=== PATIENT | female | born 1985 | race Caucasian/White ===

== ENCOUNTER 2023-11-23 09:45 | Outpatient (CLI) | payer BC, OTHER, SELFPAY ==
--- NOTE | ~2023-11-23 | MM_ITS ---
EXAMINATION: MM screening emilie BI w sabi HISTORY: Screening TECHNIQUE: Craniocaudal and mediolateral oblique 3-D tomosynthesis images were obtained and synthetic 2-D images were generated. CAD analysis was submitted and interpreted. COMPARISON: No prior mammogram is available for comparison at this institution. BREAST PARENCHYMAL COMPOSITION: Dense: The breasts are extremely dense, which lowers the sensitivity of mammography. FINDINGS: There is no evidence of suspicious mass, calcification, or architectural distortion to sugg est malignancy in either breast. There has been no suspicious interval change. IMPRESSION: 1. No mammographic evidence of malignancy. 2. Recommend routine screening mammography in one year. BI-RADS Category 1: Negative Reviewed, dictated and finalized at location B.
== END 2023-11-23 09:46 | disposition home or self-care (01) ==
LOC: ANHIMG 09:49
PROVIDERS: Visit Provider Surgery Plastic and Reconstructive Surgery
DX: Z12.31 Encounter for screening mammogram for malignant neoplasm of breast (principal)
CPT/HCPCS: 77063; 77067

== ENCOUNTER 2024-02-05 10:52 | Outpatient (CLI) | payer BC, OTHER, SELFPAY ==
--- NOTE | 2024-02-05 11:08 | ECG_ITS ---
Test Date: 2024-02-05 11:19:24 Measurements Intervals [place] Rate: 58 P: 29 WI: 143 QRS: 62 QRSD: 97 T: 20 QT: 425 QTc: 418 Interpretive Statements SINUS BRADYCARDIA INCOMPLETE RIGHT BUNDLE BRANCH BLOCK NONSPECIFIC T-WAVE ABNORMALITY No previous ECG available for comparison Electronically Signed On 02-05-2024 15:19:24 CDT by Marino Peres M.D.
[2024-02-05 11:28] LABS: Hematocrit 40.4 % (37.0-47.0); Hemoglobin 13.4 g/dL (12.0-15.0)
== END 2024-02-05 10:53 | disposition home or self-care (01) ==
PROVIDERS: Anesthesiology; Visit Provider Surgery Plastic and Reconstructive Surgery
DX: Z41.1 Encounter for cosmetic surgery (principal)
CPT/HCPCS: 36415; 85014; 85018; 93005

== ENCOUNTER 2024-02-12 01:27 | Day surgery (SDC) | payer OTHER, SELFPAY ==
--- NOTE | 2024-02-04 15:15 | SUR.PREOP ---
Report to the Outpatient Waiting Room, entrance under the green pavilion located off [facility], at time ____07___ on date ____02/12/24___. Planned Procedure Time: ____899____. Time changes happen often and if your time is changed the preop area will call you the afternoon before. - You and your visitor will be asked to self-screen and do not enter if you have any COVID symptoms. - A mask is optional within the hospital at this time. Patients may have clear liquids (water, carbonated beverages, clear teas, apple juice) until 3 hours prior to surgery with a maximum of 20 ounces. - NO CLEAR LIQUIDS AFTER 0600 - No food from midnight until time of surgery - Infants may have breast milk until 4 hours before surgery, infant formula 6 hours prior to surgery. - Children will be allowed to drink immediately following surgery. If applicable, please bring a bottle or sippy cup to assist with drinking. Juice, water, soda, and popsicles are readily available. For infants on formula, please bring formula the day of surgery. Pacifiers are allowed. Take the following medications with a SIP of water the morning of surgery: SERTRALINE DO NOT STOP ANY OF YOUR OTHER PRESCRIPTION MEDICATIONS PRIOR TO SURGERY ?EXCEPT THE FOLLOWING Medications to discontinue per physician N/A Date to take last dose Please no make-up, nail fijian, hairspray, perfume, deodorant, or body powder the day of surgery. No jewelry (including any body piercings) or valuables the day of surgery, leave them at home. Please take a shower or bath the night before, or the morning of, surgery with an antibacterial soap. Wear comfortable, loose fitting clothing. Children are encouraged to wear pajamas. - Jewelry must be removed prior to entering the operating room. Rings and piercings that are not removed may be cut off. - The hospital will not accept responsibility for valuables. - Please leave all valuables, including medications, at home the day of surgery. If you are going home after surgery, a licensed tow bar driver must drive you home. - NO public transportation without another adult if you receive anesthesia. - We recommend that an adult stay with you for 24 hours following discharge. - We also recommend that you do not drive, make important decision, drink alcoholic beverages, or take any drugs that were not prescribed by your health care provider for at least 24 hours after your discharge time. For Pediatric surgeries, we recommend two adults accompany the child home. Follow any additional instructions given to you from your surgeon. If you or anyone in your household have experienced Covid symptoms in the past week, please notify your surgeon or the nurse liaison at the phone number below for possible testing. Telephone instructions given to TOBY SCHAEFER and asked if any additional questions and then verbalized understanding. Patient advised to call surgeon office or pre surgery nurse liaison [phone] if any additional questions.
[2024-02-04 15:25] VITALS: BMI 27.2
[2024-02-12] VITALS (7 sets, daily range): BP systolic 104–132; BP diastolic 63–88; PULSE 66–104; RESP 14–18; TEMP 36.3–36.6; O2SAT 98–100
--- NOTE | 2024-02-12 07:11 | W.PM.PROC2 ---
Procedure Note - Detailed Date of Procedure 02/12/24 Pre-op Diagnosis skin laxity, micromastia Post-op Diagnosis Same Procedure Performed 1. Progressive tension abdominoplasty with suction lipectomy 2. Fat grafting bilateral breast Surgeon Mark Cardenas MD Anesthesia General Findings Lipoaspirate: 2,550 cc Fat grafting breast: Right - 350 cc Left - 350 cc Description of Procedure They are here today for the above procedures. Previously and again today the risks, benefits, alternatives were discussed in extensive detail. I wanted them to be very realistic about the risks involved as well as expectations. We discussed aftercare and what to monitor for. I was very upfront about the risks of wound breakdown leading to loss of skin, open wounds, and need for additional procedures with permanent abdominal deformity. We discussed DVT/PE risks and management. Made sure answered all of their questions to their satisfaction today and consent was obtained. They were marked in the preoperative holding area with their verification. The patient was taken to the operating room. Anesthesia was provided by anesthesiology. A Johnson catheter was started. Placed prone on the operating room table with care taken to protect from injury. Prepped and draped in a standard sterile fashion. A surgical time-out was taken. Stab incisions were made and tumescent solution was infiltrated. Once adequate time was allowed for hemostasis a 3mm multihole cannula was utilized for harvest of adipose tissue to a gravity separation device. Also utilized a 5mm basket to complete suction lipectomy based on S.A.F.E. technique in multiple planes and passes. Suction lipectomy continued to result based on pre-operative planning, intra-operative observation, and rolling pinch test which were in full agreement. Patient was then placed supine with care taken to protect from injury. I placed the patient in a flexed position to verify the upper and lower markings would reach. I then placed supine. A thorough abdominal examination was completed. Stab incisions were made and tumescent solution infiltrated. Stab incisions were made and tumescent solution was infiltrated. Once adequate time was allowed for hemostasis a 3mm multihole cannula was utilized for harvest of adipose tissue to a gravity separation device. Also utilized a 5mm basket to complete suction lipectomy based on S.A.F.E. technique in multiple planes and passes. Suction lipectomy continued to result based on pre-operative planning, intra-operative observation, and rolling pinch test which were in full agreement. A 10 blade was used to make the upper incision. I continued dissection down to the level of fascia. Elevated just what was necessary for repair of the diastasis. I then again flexed the bed to verify the upper skin flap would reach the lower markings without tension. Once verified I placed her supine once again and a 10 blade used to make the lower incision. I elevated up to level the umbilicus and left the umbilicus intact on a well-vascularized stalk. The intervening tissue was removed. A 2 mm blunt cannula with 0.5% bupivacaine was injected deep to the fascia bilaterally. I plicated the diastasis recti using 0 PDO Stratafix barbed suture. This was in 2 separate layers using 2 separate sutures as well. I also repaired lateral to the rectus using two layers of 0 PDS. After the patient was flexed (below) plicated the fascia with 0 PDO Stratafix in two separate layers. The patient was flexed and starting from superior to inferior began plication using 2-0 Vicryl to obliterate all space in a standard progressive tension fashion. At the umbilicus I marked out the location of the skin and inset this with 3-0 Monocryl and 4-0 Vicryl. I continued the remainder of the plication using 2-0 Vicryl until I reached my lower planned scar line. I trimmed any excess skin of the upper flap making sure t
[2024-02-12] MEDS: LACTATED RINGERS 1,000 ML 30 ML IV CONT ×2 (07:20→13:30)
[2024-02-12 07:29] LABS: BEDSIDEPREGUCG Negative
[2024-02-12 07:43] LABS: Urine Cotinine NEGATIVE
--- NOTE | 2024-02-12 08:47 | WPDANESEPPF ---
Anes - Initial Pre Proc Eval Procedure: Operation Date: 02/12/24 09:00 Proposed Procedures p Abdominoplasty with Liposuction, - Mark Cardenas MD s Fat Grafting to Bilateral Breasts - Mark Cardenas MD Date/Time: 02/12/24 08:47 Surgeon: Mark Cardenas MD Pre Op Diagnosis: skin laxity, micromastia Patient Data Age: 38 Gender: F Height: 1.63 m Weight: 68.25 kg Last Vital Signs Temp 97.8 F 02/12/24 07:26 Pulse 66 02/12/24 07:26 Resp 16 02/12/24 07:26 BP 104/71 02/12/24 07:26 Pulse Ox 99 02/12/24 07:26 O2 Del Method Room Air 02/12/24 07:26 Allergies Allergy/AdvReac Type Severity Reaction Status Date / Time No Known Allergies Allergy Mild Verified 02/12/24 07:12 Home Medications Medication Instructions Recorded Confirmed Type etonogestrel 68 mg subdermal 1 implant subdermal ONCE 02/13/22 02/04/24 History implant (Nexplanon) sertraline 100 mg tablet 100 mg PO DAILY #90 tabs 04/24/23 02/04/24 Rx isotretinoin 40 mg capsule 40 mg PO DAILY 12/05/23 02/04/24 History (Amnesteem) Laboratory Tests 02/12/24 02/12/24 07:06 07:27 POC Urine HCG, Qual Negative POC Ur Preg QC Yes Cotinine Negative Patient hx anesthesia problems: none Family hx anesthesia problems: none Results Review: All pre-operative results and documents have been reviewed as part of the pre-operative evaluation. [facility] Past Medical History Medical History Abnormal Pap smear of cervix BRIANA I 2008 - LEEP Acne Anxiety Depression Encounter for removal and reinsertion of Nexplanon 02/13/2022 Headache History of broken nose 2004 Nexplanon insertion 05/04/15 Nexplanon insertion 07/23/18 Nexplanon removal/reinsertion Nexplanon removal 07/23/18 Nexplanon removal/reinsertion Surgical History Surgical History H/O LEEP 2009 BRIANA I History of 06/18/11 primary c/s--elective 03/01/15 rpt c/s History of tonsillectomy 2005 Hx of LASIK 03/23/20 Family History Family History Mother Hypertension Grandparent Diabetes mellitus paternal grandfather Father No problems noted. Sibling No problems noted. 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 Gender identity (if verbalized by the patient): Female Sexual Orientation (if Verbalized by the Patient): Straight or Heterosexual Spiritual care concerns: No Anes - Eval Final PreProcedure Day of Procedure 02/12/24 08:47 Patient weight: normal Heart: regular rate and rhythm Lungs: clear to auscultation Airway: Mallampati scale class II Neurological: alert and oriented Last oral intake: >/= 8 hours ASA classification: II Emergent: no Anesthetic plan: proceed Anesthesia type and monitoring: general ETT and standard monitoring Results Review: All pre-operative results and documents have been reviewed as part of the pre-operative evaluation. Informed Consent: The patient's anesthetic plan and its attendant risks and benefits were discussed with the patient/family/POA. Questions were solicited and answers provided to the satisfaction of the patient/family/POA.
[2024-02-12] MEDS: ceFAZolin 2 GM/D5W 50 ML 2 GM/50 ML BAG IVPB (08:49)
[2024-02-12] MEDS: TRANEXAMIC ACID 1,000MG/ISO100 1,000 MG/100 ML BAG 200 MG IVPB (08:49)
--- NOTE | 2024-02-12 10:09 | WPDHPUPDATE1 ---
History and Physical Update Update Date/Time: 02/12/24 08:46 History and Physical has been reviewed, including an updated exam of the patient. There are NO changes in the patient's condition. Risks, benefits, and alternatives have been discussed and questions answered. Patient agrees to proceed with procedure.
[2024-02-12] MEDS: LACTATED RINGERS IRRIG 1,000 ML, LIDOCAINE HCL 1% LOCAL INJ 50 ML, EPINEPHrine HCL INJ ... INFILTRATE (11:22)
[2024-02-12] MEDS: BUPIVACAINE/EPINEPHRINE 0.5% 10 ML VIAL 60 ML INFILTRATE (11:29)
[2024-02-12] MEDS: oxyCODONE HCL (*CRX) 5 MG TAB IR PO (14:44)
== END 2024-02-12 15:30 | disposition home or self-care (01) ==
PROVIDERS: Visit Provider Surgery Plastic and Reconstructive Surgery
PROC: (CPT 15830; principal; 2024-02-12 09:00)
PROC: (CPT 15769; 2024-02-12 09:00)
DX: Z41.1 Encounter for cosmetic surgery (principal); N64.82 Hypoplasia of breast; L57.4 Cutis laxa senilis; F41.9 Anxiety disorder, unspecified; F32.A Depression, unspecified; Z79.899 Other long term (current) drug therapy
CPT/HCPCS: 15830; 15847; 15771; 15772 ×13; 80307; A9270; J0171; J0330; J0690; J1100; J1170; J2250; J2405; J2704; J3010; J7120

== ENCOUNTER 2025-03-27 12:21 | Outpatient (CLI) | payer BC, OTHER, SELFPAY ==
--- NOTE | ~2025-03-27 | MM_ITS ---
EXAMINATION: MM screening emilie BI w sabi HISTORY: Screening TECHNIQUE: Craniocaudal and mediolateral oblique 3-D tomosynthesis images were obtained and synthetic 2-D images were generated. CAD analysis was submitted and interpreted. COMPARISON: No prior mammogram is available for comparison at this institution. BREAST PARENCHYMAL COMPOSITION: The breasts are extremely dense, which lowers the sensitivity of mammography. FINDINGS: There is no evidence of suspicious mass, calcification, or architectural distortion to suggest malignancy. Asymmetry in the right retroareolar region. Asymmetry at the level of the posterior nipple line, posterior depth, seen in the left MLO projection. IMPRESSION: 1. Asymmetry in the right retroareolar region. The study is incomplete. A diagnostic mammogram and a diagnostic ultrasound are recommended. 2. Asymmetry at the level of the posterior nipple line, posterior depth, seen in the left MLO projection. The study is incomplete. A diagnostic mammogram and a diagnostic ultrasound are recommended. BI-RADS 0: Incomplete-Need additional imaging evaluation. Reviewed, dictated and finalized at location Q. IMPRESSION: 1. Asymmetry in the right retroareolar region. The study is incomplete. A diagn ostic mammogram and a diagnostic ultrasound are recommended. 2. Asymmetry at the level of the posterior nipple line, posterior depth, seen i n the left MLO projection. The study is incomplete. A diagnostic mammogram and a diagnostic ultrasound are recommended. BI-RADS 0: Incomplete-Need additional imaging evaluation.
== END 2025-03-27 12:22 | disposition home or self-care (01) ==
PROVIDERS: PCP Surgery Plastic and Reconstructive Surgery; Visit Provider Surgery Plastic and Reconstructive Surgery
DX: Z12.31 Encounter for screening mammogram for malignant neoplasm of breast (principal); R92.8 Other abnormal and inconclusive findings on diagnostic imaging of breast
CPT/HCPCS: 77063; 77067

== ENCOUNTER 2025-04-21 09:34 | Outpatient (CLI) | payer BC, OTHER, SELFPAY ==
--- NOTE | ~2025-04-21 | MMUS_ITS ---
EXAMINATION: MM diagnostic emilie BI w sabi, US breast LT limited INDICATION: 40-year old female; BI-RADS 0, callback to evaluate Both breasts asymmetries COMPARISON: 03/27/2025 TECHNIQUE: Digital breast tomosynthesis True lateral and spot compression MLO views of BILATERAL breasts were obtained with computer-aided detection to assist in interpretation of the study. FINDINGS: The breasts are extremely dense, which lowers the sensitivity of mammography. The asymmetry of concern in the right retroareolar region effaces on spot compression views compatible with superimposition of fibroglandular tissue. The asymmetry of concern in the retroareolar left breast persists as a circumscribed mass. Ultrasound was performed for further evaluation. LEFT BREAST ULTRASOUND FINDINGS: Targeted evaluation of the area of concern was completed. There is a 0.9 x 0.8 x 0.5 cm cluster of cysts at 10:00 location 5 cm from the nipple that correlate to the area of mammographic finding. IMPRESSION: Probable Benign LEFT breast mass. Short-term follow-up recommended. RECOMMENDATION: 6 month follow-up diagnostic LEFT mammogram and LEFT breast ultrasound. BI-RADS 3, PROBABLY BENIGN Reviewed, dictated and finalized at location B. [employer]OR IMPRESSION: Probable Benign LEFT breast mass. Short-term follow-up recommended. RECOMMENDATION: 6 month follow-up diagnostic LEFT mammogram and LEFT breast ultrasound. BI-RADS 3, PROBABLY BENIGN
--- OUTSIDE RECORDS SUMMARY | 2025-04-21 10:45 | XMS_ITS | Encounter Summary ---
Author Organization [facility] Address [address] [place] [address] Care Team Providers Care Batch Tester Name Role Phone Alonzo Mtz MD Primary Care Provider [phone] Reason for Visit * Reason Onset Date Comments Nurse Only 07/26/2022 Encounter Details Date Type Department Care Team (Late st Contact Info) Description 07/26/2022 Telephone [facility] [address] [place] [address], [place] [id number] Shahla Sy MD [address] [place] [address] [address] [place] [address] Nurse Only Social History Tobacco Use Types Packs/Day Years Used Date Smoking Tobacco: Never Smokeless Tobacco: Never Alcohol Use Standard Drinks/Week Comments No 0 (1 standard drink = 0.6 oz pur e alcohol) Comments No Sex and Gender Information Value Date Recorded Sex Assigned at Not on file Legal Sex Female 10:23 AM CDT Gender Identity Not on file Sexual Orientation Not on file documented as of this encounter Miscellaneous Notes * Telephone Encounter - Kaykay Cano - 07/26/2022 9:23 AM CST Pt states the script ketozonazole shampoo and pimecrolimus that was called in for her is not working she would like to know what other options she has OR ADVISOR documented in this encounter Plan of Treatment Not on file documented as of this encounter Visit Diagnoses Not on filedocumented in this encounter Care Teams Batch Tester Relationship Specialty Start Date End Date Alonzo Mtz MD [address] [address] PCP - General 10/16/17 documented as of this encounter
--- OUTSIDE RECORDS SUMMARY | 2025-04-21 10:45 | XMS_ITS | Patient Health Record ---
Author Organization [facility] Address [address] [place], [place] [id number] Care Team Providers Care Membership Sales Representative Name Role Phone CHIRAG CLEARY Unavailable [phone] Alonzo Mtz Unavailable Unavailable Reason For Referral No Information Social History Social History Additional Details Category Social Info Options Details Migrated Social History Migrated Social History History of tobacco use : , Smoking Status : Never smoked Plan Of Treatment No Information Insurance Providers Payer Name Payer Address Payer Phone Subscriber Number Group Number Insured Name Patient Relationship to Insured Coverage Start Date Coverage End Date [facility] [address] [place], [place] [id number] TOBY SCHAEFER Self - patient is the insured Local [facility] [id number] [place] [address] [id number] CHRISTIAN SCHAEFER Spouse - patient is the spouse of the insured
--- OUTSIDE RECORDS SUMMARY | 2025-04-21 10:45 | XMS_ITS | Clinical Summary ---
Author Organization [facility] Address [address] [place] [address] Care Team Providers Care Director Cardiovascular Name Role Phone None, Provider MD Primary Care Provider Unavaila ble Allergies No known active allergies Medications MULTIPLE VITAMINS-MINERA LS OR Take 1 tablet by mouth daily. Active sertraline (ZOLOFT) 100 MG tablet Take 1 tablet (100 mg total) by mouth daily. 3 Active etonogestrel (NEXPLANON) 68 MG SC implant 1 each (68 mg total) by Implant route once. Active clobetasol (TEMOVATE) 0.05 % external solution Apply 1 Application. topically 2 (two) times daily. 3 Active ketoconazole (NIZORAL) 2 % shampoo Apply 1 Application. topically every other day. 3 Active probiotic (FLORAJEN3) Cap capsule Take 2 capsules by mouth daily with breakfast. Tumeric + 62 billion CFU Active NON FORMULARY Take 1 tablet by mouth 2 (two) times a day. JSHEALTH DETOX AND DEBLOAT Active Family History Medical History Relation Comments No Known Problems Brother No Known Problems Father No Known Problems Mother No Known Problems Sister Relation Status Comments Brother Father Mother Sister Social History Tobacco Use Types Packs/Day Years Used Date Smoking Tobacco: Never Smokeless Tobacco: Never Tobacco Cessation:Counseling Given: Not Answered Alcohol Use Standard Drinks/Week Comments Not Currently 1.7 (1 standard drink = 0.6 oz p ure alcohol) Comments Unknown Sex and Gender Information Value Date Recorded Sex Assigned at Not on file Legal Sex Female 8:43 AM CDT Gender Identity Not on file Sexual Orientation Not on file Last Filed Vital Signs Vital Sign Reading Time Taken Comments Blood Pressure 113/72 04/25/2023 1:15 PM [employer] Pulse 65 04/25/2023 1:15 PM [employer] Temperature 37.3 C (99.1 F) 04/25/2023 1:15 PM [employer] Respiratory Rate 20 04/25/2023 1:15 PM [employer] Oxygen Saturation 99% 04/25/2023 1:15 PM [employer] Inhaled Oxygen Concentration - - Weight 71.5 kg (157 lb 11.2 oz) 04/25/2023 1:15 PM [employer] Height 162.6 cm (5' 4) 04/25/2023 1:15 PM [employer] Body Mass Index 27.07 04/25/2023 1:15 PM [employer] Plan of Treatment Health Maintenance Due Date Last Done Comments Cervical Cancer Screening Pa p Smear (Age 30 to 64) Every 3 Years 1985 Annual Physical 1988 Hepatitis C 2003 DTaP, Tdap and Td Vaccines ( 1 - Tdap) 2004 Hepatitis B Vaccines (1 of 3 - 19+ 3-dose series) 2004 HPV Vaccines (1 - 3-dose SCD M series) 2012 Cervical Cancer Screening Pa p with HPV Testing (Age 30 to 64) Every 5 Years 2015 Cervical Cancer Screening with HPV 2015 PHQ-2 (Physician [place]) 06/18/2024 COVID-19 Vaccine (1 - 2024-2 6 season) 2025 Influenza Adult (#1) 2025 Mammogram Screening 2025 Hepatitis A Vaccines Aged Out No long er eligible based on patient's age to complete this topic Meningococcal B Vaccine Aged Out No l onger eligible based on patient's age to complete this topic Meningococcal Vaccine Aged Out No nedra lucien eligible based on patient's age to complete this topic Pneumococcal Vaccine: Pediat rics (0 to 5 Years) and At-Risk Patients (6 to 49 Years) Aged Out No longer eligible b ased on patient's age to complete this topic RSV Immunizations Under 20 Months Aged Out No longer eligible based on patient's age to complete this topic Insurance [employer] [facility] Care Teams Director Cardiovascular Relationship Specialty Start Date End Date None, Provider, PCP - General UNKNOWN PHYSICIAN SPECIALTY 04/09/23
== END 2025-04-21 09:35 | disposition home or self-care (01) ==
LOC: CHSIMG 09:38
PROVIDERS: PCP Surgery Plastic and Reconstructive Surgery; Visit Provider Surgery Plastic and Reconstructive Surgery
DX: R92.8 Other abnormal and inconclusive findings on diagnostic imaging of breast (principal)
CPT/HCPCS: 76642; 77062; 77066; G0279

== ENCOUNTER 2025-05-12 00:06 | Day surgery (SDC) | payer OTHER, SELFPAY ==
[2025-05-01 11:12] VITALS: BMI 21.1
--- NOTE | 2025-05-01 11:18 | PC.NURSE ---
[facility] has started construction of its new state of the art ER which will open Spring 2026. With this, we anticipate parking may be a challenge for some our surgical patients and families. Parking spaces are limited but are available for all Surgical, obstetrics, and ER patients sharing this lot. If you arrive and find you are having a hard time finding a parking space, please note that we understand the challenges, please drive around the hospital and park near Hospital Entrance 1. When you enter this entrance, you can ask a volunteer to direct or take you back to the surgical waiting area to check in. We appreciate everyone?s understanding of these expected challenges while we build for your future. Report to the Outpatient Waiting Room, entrance under the green pavilion located off [address], at time _1030_ on date _[phone]_. Planned Procedure Time: _1230_.? Time changes happen often and if your time is changed the preop area will call you the afternoon before. - You and your visitor will be asked to self-screen and do not enter if you have any COVID symptoms. Please call surgeon if you need to reschedule. - A mask is optional within the hospital at this time. Patients may have clear liquids (water, carbonated beverages, clear teas, apple juice) until 3 hours prior to surgery with a maximum of 20 ounces. - No food from midnight until time of surgery and no smoking, or chewing tobacco (or any form of nicotine). No chewing gum, candy or mints. Take only the following medications with a SIP of water on the morning of surgery: ___Sertraline____ DO NOT STOP ANY OF YOUR OTHER PRESCRIPTION MEDICATIONS PRIOR TO SURGERY EXCEPT THE FOLLOWING Hold all vitamins and supplements for 3 days per anesthesiologist. Medications to discontinue per physician Date to take last dose Please no make-up, nail sami, hairspray, perfume, deodorant, or body powder the day of surgery.? No jewelry (including any body piercings) or valuables the day of surgery, leave them at home.? Please take a shower or bath the night before, or the morning of, surgery with an antibacterial soap.? Wear comfortable, loose fitting clothing.? - Jewelry must be removed prior to entering the operating room.? Rings and piercings that are not removed may be cut off. - The hospital will not accept responsibility for valuables.? - Please leave all valuables, including medications, at home the day of surgery. If you are going home after surgery, a licensed medical driver must drive you home.? - NO public transportation without another adult if you receive anesthesia. - We recommend that an adult stay with you for 24 hours following discharge. - We also recommend that you do not drive, make important decision, drink alcoholic beverages, or take any drugs that were not prescribed by your health care provider for at least 24 hours after your discharge time. Follow any additional instructions given to you from your surgeon. Telephone instructions given to _Paige__and asked if any additional questions and then verbalized understanding. Patient advised to call surgeon office or pre surgery nurse liaison [phone] if any additional questions.
[2025-05-12] VITALS (7 sets, daily range): BP systolic 102–131; BP diastolic 63–79; PULSE 61–94; RESP 12–19; TEMP 36.3–37; O2SAT 98–100; BMI 21.9
[2025-05-12] MEDS: LACTATED RINGERS 1,000 ML 30 ML IV CONT ×2 (10:50→13:52)
[2025-05-12] MEDS: TRANEXAMIC ACID 1,000MG/ISO100 1,000 MG/100 ML BAG 200 MG IVPB (11:57)
[2025-05-12 12:11] LABS: BEDSIDEPREGUCG Negative (Negative)
--- NOTE | 2025-05-12 12:19 | WPDHPUPDATE1 ---
History and Physical Update Update Date/Time: 05/12/25 12:19 History and Physical has been reviewed, including an updated exam of the patient. There are NO changes in the patient's condition. Risks, benefits, and alternatives have been discussed and questions answered. Patient agrees to proceed with procedure.
--- NOTE | 2025-05-12 12:23 | W.PM.PROC2 ---
Procedure Note - Detailed Date of Procedure 05/12/25 Pre-op Diagnosis micromastia Post-op Diagnosis Same Procedure Performed Bilateral augmentation mammaplasty Surgeon Mark Cardenas MD Anesthesia General Findings Bilateral Pato Cottrell SoftTouch 405cc Dual plane 1 Right: REF# [id number] SN [id number] Left: REF# [id number] SN [id number] Description of Procedure She is here today for bilateral breast augmentation. Previously and again today the risks, benefits, alternatives were discussed in extensive detail. I wanted her to be very realistic about the risks involved as well as expectations. We discussed aftercare and what to monitor for. Made sure answered all of her questions to her satisfaction today and consent was obtained. Marked in the preoperative holding area with their verification. The patient was taken to the operating room placed supine on the operating table. Anesthesia was provided by anesthesiology. A surgical time-out was taken. We cleansed the skin and 1% lidocaine and 0.25% Marcaine with epinephrine was used anesthetize as a field block. She was prepped and draped in a standard sterile fashion. Tegaderm nipple Padilla were placed. A 15 blade used to make an incision along the inframammary fold. Dissection was continued at 45 degree angle until the chest wall as identified. I incised the pectoralis major along its inferior border and completely released the inferior border leaving the medial border intact. I created a subpectoral pocket in the appropriate dimensions based on our preoperative planning for the implant. I then copiously irrigated with saline solution and verified a strict hemostasis. Next the use a triple antibiotic and Betadine containing solution to irrigate the pocket. I washed my gloves with the triple antibiotic and Betadine solution. We washed the implant immediately upon opening it with this solution and only opened it when we needed it. I used implant funnel and no-touch technique. The implant was introduced into the pocket using the funnel. Having verified positioning of the implant this was closed using 2-0 PDS followed by 3-0 Monocryl in a running subcuticular 4-0 Monocryl followed by tissue glue. Fluffs and surgical bra were placed. Patient was awoke and taken to PACU without difficulty. All instrument sponge counts were correct at the end of the case. Estimated Blood Loss 25 Drains No Packing No Pathology None sent Complications No immediate complications Condition Stable Disposition PACU
--- NOTE | 2025-05-12 12:42 | WPDANESEPPF ---
Anes - Initial Pre Proc Eval Procedure: Operation Date: 05/12/25 12:30 Proposed Procedures p Bilateral Breast Augmentation - Mark Cardenas MD Date/Time: 05/12/25 12:42 Surgeon: Mark Cardenas MD Pre Op Diagnosis: micromastia Patient Data Age: 40 Gender: F Height: 1.63 m Weight: 58 kg Last Vital Signs Temp 37.0 C 05/12/25 11:00 Pulse 68 05/12/25 11:00 Resp 18 05/12/25 11:00 BP 102/63 05/12/25 11:00 Pulse Ox 100 05/12/25 11:00 O2 Del Method Room Air 05/12/25 11:00 Allergies Allergy/AdvReac Type Severity Reaction Status Date / Time No Known Allergies Allergy Mild Verified 05/12/25 11:50 Home Medications ?Medication ?Instructions ?Recorded ?Confirmed ?Type etonogestrel 68 mg subdermal 1 implant subdermal ONCE 02/13/22 05/01/25 History implant (Nexplanon) sertraline 100 mg tablet 100 mg PO DAILY #90 tabs 01/02/25 05/01/25 Rx multivitamin (Daily Multi-Vitamin 1 tablet PO DAILY 05/01/25 05/12/25 History tablet) Laboratory Tests 05/12/25 11:00 POC Urine HCG, Qual Negative (Negative) Patient hx anesthesia problems: none Family hx anesthesia problems: none Results Review: All pre-operative results and documents have been reviewed as part of the pre-operative evaluation. [facility] Past Medical History Medical History Encounter for removal and reinsertion of Nexplanon 02/13/2022 Nexplanon removal 07/23/18 Nexplanon removal/reinsertion Nexplanon insertion 05/04/15 Nexplanon insertion 07/23/18 Nexplanon removal/reinsertion History of broken nose 2004 Headache Acne Depression Anxiety Abnormal Pap smear of cervix BRIANA I 2008 - LEEP Surgical History Surgical History H/O abdominoplasty Hx of LASIK 03/23/20 History of 06/18/11 primary c/s--elective 03/01/15 rpt c/s H/O LEEP 2009 BRIANA I History of tonsillectomy 2006 Family History Family History Mother Hypertension Grandparent Diabetes mellitus paternal grandfather Father No problems noted. Sibling No problems noted. 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 Gender identity (if verbalized by the patient): Female Sexual Orientation (if Verbalized by the Patient): Straight or Heterosexual Spiritual care concerns: No Anes - Eval Final PreProcedure Day of Procedure 05/12/25 12:42 Patient weight: normal Heart: regular rate and rhythm Lungs: clear to auscultation Airway: Mallampati scale class 1 Neurological: alert and oriented Last oral intake: >/= 8 hours ASA classification: II Emergent: no Anesthetic plan: proceed Anesthesia type and monitoring: general LMA and standard monitoring Results Review: All pre-operative results and documents have been reviewed as part of the pre-operative evaluation. Informed Consent: The patient's anesthetic plan and its attendant risks and benefits were discussed with the patient/family/POA. Questions were solicited and answers provided to the satisfaction of the patient/family/POA.
[2025-05-12] MEDS: NACL 0.9% IRRIG POUR BOTTLE 900 ML, GENTAMICIN SULFATE INJ 160 MG, ceFAZolin 2 GM, POVI... IRRIGATION (12:47)
[2025-05-12] MEDS: ceFAZolin 2 GM in SODIUM CHLORIDE 0.9% IV 50 ML 100 ML IVPB (12:47)
[2025-05-12] MEDS: LIDO 1%/EPINEPHRINE 1:100,000 50 ML VIAL 30 ML INFILTRATE (12:47)
[2025-05-12] MEDS: HYDROmorphone HCL INJ (*CRX) 1 MG/ML SYR 0.25 MG IV PUSH ×3 (14:09→14:26)
[2025-05-12] MEDS: oxyCODONE HCL (*CRX) 5 MG TAB IR PO (14:46)
== END 2025-05-12 15:19 | disposition home or self-care (01) ==
PROVIDERS: Visit Provider Surgery Plastic and Reconstructive Surgery
PROC: (CPT 19325; principal; 2025-05-12 12:30)
DX: Z41.1 Encounter for cosmetic surgery (principal); N64.82 Hypoplasia of breast
CPT/HCPCS: 19325; J0690; A9270; J1100; J1171; J1200; J1580; J2003; J2004; J2250; J2371; J2405; J2704; J3010; J3290; J7120